=== PATIENT | female | born 1995 | race Caucasian/White ===

== ENCOUNTER 2019-02-21 18:56 | Emergency (ER) | payer OTHER ==
[~2019-02-21] VITALS: Ht 162.6 cm; Wt 80.0 kg
[~2019-02-21 18:56] MED LIST: BIRTH CONTROL PO
[2019-02-21 18:59] VITALS: Ht 162.6 cm; Wt 80.0 kg
[2019-02-21 20:30] VITALS: BP 105/72; PULSE 77; RESP 18
== END 2019-02-21 21:15 | disposition home or self-care (01) ==
LOC: E/R 18:56
DX: F10.10 Alcohol abuse, uncomplicated (principal)
CPT/HCPCS: 80053; 80307; 81025; 85025; 99283